=== PATIENT | female | born 1955 | race Caucasian/White ===

== ENCOUNTER → 2017-04-17 | Outpatient (CLI) | payer BC | END | disposition home or self-care (01) | LOC: RADECHMAIN 11:37 | PROVIDERS: ATTEND Family Medicine | DX: R00.2 Palpitations (principal) | CPT/HCPCS: 93270; 93271 ==

== ENCOUNTER → 2017-06-07 | Outpatient (CLI) | payer BC ==
--- NOTE | 2017-06-11 08:56 | MM ---
Reason for exam: screening (asymptomatic). Last mammogram was performed 1 year and 1 month ago. History: Patient is postmenopausal. Took hormonal contraceptives for 4 years. Physical Findings: A clinical breast exam by your physician is recommended on an annual basis and results should be correlated with mammographic findings. MG Screening Mammo w CAD Bilateral CC and MLO view(s) were taken. Prior study comparison: April 26, 2016, bilateral MG screening mammo w CAD. April 20, 2015, right breast MG 3d work up w/cad RT. There are scattered fibroglandular densities. No significant changes when compared with prior studies. ASSESSMENT: Negative, BI-RAD 1 RECOMMENDATION: Routine screening mammogram of both breasts in 1 year.
== END | disposition home or self-care (01) ==
LOC: RADMAMWWP 10:51
PROVIDERS: ATTEND Obstetrics & Gynecology
DX: Z12.31 Encounter for screening mammogram for malignant neoplasm of breast (principal)
CPT/HCPCS: 77067

== ENCOUNTER → 2017-11-04 | Outpatient (CLI) | payer BC ==
--- NOTE | 2017-11-04 15:33 | FL ---
EXAMINATION TYPE: FL barium enema DATE OF EXAM: 11/04/2017 COMPARISON: NONE HISTORY: Incomplete colonoscopy TECHNIQUE: A double contrast barium enema study is performed. A total of 4 minutes 48 seconds of flu oroscopic time was utilized during procedure. Preprocedure lump roller image is acquired. 10 overhead image s after procedure are acquired. 18 spot images are acquired and sent to PACS during procedure. FINDINGS: Gasoline Pump Installer view of the abdomen shows overall non-obstructive bowel gas pattern. There is gas pr ominence throughout the colon. There are pelvic phleboliths. Spina bifida defects L5 level is inciden tally seen. Patient had significant pain during filling likely due to residual colonic gas. Procedure was termina bee at level of hepatic flexure. I was then able to roll patient and get successful successful fillin g of the right colon to the cecum. There are few scattered diverticula throughout the colon most prom inent in the distal left and sigmoid colon. Appendix was not filled . The terminal ileum was not refluxed . There is a persistent short segment area of mucosal irregularity and narrowing in the mid sigmoid col on of the pelvis that appears more prominent uncertain images but appears to persist on multiple imag es, I do suspect a component of spasm but a early constricting lesion or focus at this level cannot b e excluded. IMPRESSION: Scattered diverticulosis. Suspicious short segment proximal to mid sigmoid colon persist s on several images. Neoplasm at this level cannot be excluded. Correlation with same-day incomplete colonoscopy advised. I would consider contrast-enhanced CT with rectal contrast to see if remains mojgan picious as there is component of spasm felt present also at this level based on colonoscopy correlati on.
== END | disposition home or self-care (01) ==
LOC: RADFLMAIN 14:08
PROVIDERS: ATTEND Surgery
DX: Z12.11 Encounter for screening for malignant neoplasm of colon (principal); K57.90 Diverticulosis of intestine, part unspecified, without perforation or abscess without bleeding
CPT/HCPCS: 74270

== ENCOUNTER → 2017-11-13 | Outpatient (CLI) | payer BC ==
--- NOTE | 2017-11-13 10:25 | CT ---
EXAMINATION TYPE: CT abdomen pelvis w con DATE OF EXAM: 11/13/2017 COMPARISON: Correlation barium enema 11/04/2017 HISTORY: 62-year-old female Failed colonoscopy, other intestinal obstructions. TECHNIQUE: Contiguous axial scanning of the abdomen and pelvis following administration of 100 ml Iso roland 300 IV contrast. Additional rectal contrast was administered. Delayed images through the kidneys and coronal/sagittal reconstructions performed. CT DLP: 1530 mGycm Automated exposure control for dose reduction was used. FINDINGS: Heart normal size without pericardial effusion. Small to moderate-sized hilar hernia. Lung bases brayan r without pleural effusion. A 7 mm nodular arterial phase blush in the mid liver, axial image 16 nonspecific, likely vascular rk nting or small flash filling hemangioma. Otherwise, no focal liver lesion seen. No biliary ductal dil atation. Portal venous system is patent. Adrenal glands, spleen, left kidney, and pancreas appear within normal limits. There is a 1.4 cm hypo dense lesion mid right kidney too small for accurate CT characterization, likely cortical cyst. No dilated small bowel, free fluid, or free air. Scattered mild colonic diverticulosis. Rectal tube is present with contrast opacifying the colon. The re remains a 5 cm long segment of abnormal wall thickening and narrowing along the mid sigmoid colon, refer to axial image 64 and coronal image 52. The remainder of the colon is distended with rectal co ntrast. Scattered mild to moderate stool is present. No mesenteric or retroperitoneal lymphadenopathy identified Bladder partially distended. Uterus is anteverted. Structure suspected to represent the right ovary i s seen, axial image 64. Left ovary not clearly delineated. Multiple pelvic phleboliths. No abnormal f luid collection in the pelvis no pelvic lymphadenopathy seen. Bones: Degenerative changes at the pubic symphysis, left SI joint and in the mid to lower lumbar spin e. There is left L5 pars defect with grade 1 anterolisthesis of L5-S1. No osseous destructive process . IMPRESSION: 1. PERSISTENT 5 CM LONG SEGMENT OF ABNORMAL NARROWING AND WALL THICKENING OF THE MID SIGMOID COLON. T HE REMAINDER OF THE CONTRAST IS DISTENDED WITH CONTRAST MATERIAL. FINDINGS COULD REPRESENT A POSTINFL AMMATORY STRICTURE OR NEOPLASM. 2. MILD SCATTERED COLONIC DIVERTICULOSIS. 3. SMALL TO MODERATE-SIZED HIATAL HERNIA.
== END | disposition home or self-care (01) ==
LOC: RADCTMAIN 07:53
PROVIDERS: ATTEND Surgery
DX: K56.609 Unspecified intestinal obstruction, unspecified as to partial versus complete obstruction (principal); K57.30 Diverticulosis of large intestine without perforation or abscess without bleeding; K44.9 Diaphragmatic hernia without obstruction or gangrene
CPT/HCPCS: 74177; Q9967

== ENCOUNTER → 2017-12-13 | Outpatient (CLI) | payer BC ==
[2017-12-13 12:33] LABS: HCT 42.4 % (34.0-46.0); HGB 14.2 gm/dL (11.4-16.0); MCH 30.2 pg (25.0-35.0); MCHC 33.5 g/dL (31.0-37.0); Mean Platelet Volume 6.1; Platelet Count 363 k/uL (150-450); RBC 4.71 m/uL (3.80-5.40); RDW 12.7 % (11.5-15.5); WBC 5.3 k/uL (3.8-10.6)
[2017-12-13 12:51] LABS: Anion Gap 8 mmol/L; Blood Urea Nitrogen 14 mg/dL (7-17); Calcium 9.2 mg/dL (8.4-10.2); Carbon Dioxide 30 mmol/L (22-30); Chloride 95 mmol/L (98-107); Glucose 86 mg/dL (74-99); Potassium 3.9 mmol/L (3.5-5.1); Sodium 133 mmol/L (137-145)
== END | disposition home or self-care (01) ==
LOC: LABPAT 11:22
PROVIDERS: ATTEND Anesthesiology
DX: Z01.818 Encounter for other preprocedural examination (principal); Z01.812 Encounter for preprocedural laboratory examination
CPT/HCPCS: 80048; 85027; 93005

== ENCOUNTER 2017-12-18 11:17 | Inpatient (IN) | payer BC ==
[2017-12-13 09:00] VITALS: BMI 33.7
[~2017-12-18 11:17] MED LIST: HEPARIN SODIUM,PORCINE 5,000 UNIT/ML 1 ML VIAL SQ ONE; HYDROmorphone 0.5 MG/0.5 ML SYRINGE IVP PRN; ONDANSETRON 4 MG/2 ML VIAL IVP ONE; SCOPOLAMINE 1.5MG/72HR PATCH TRANSDERM ONE; ceFAZolin IN SWFI 2 GM/20 ML SYRINGE IVP ONE; fentaNYL (PF) 50 MCG/ML 2 ML AMP IV PRN; metroNIDAZOLE-NS PMX 500 MG in SALINE 1 100ML.BAG IVPB ONE
[2017-12-18] MEDS: LACTATED RINGERS 1,000 ML IV SCH (12:18)
[2017-12-18] MEDS ORDERED: LIDOCAINE 1% 20 ML VIAL (10MG/ML) FOR IV START INTRADERMA ONE ×2 (12:18→12:19)
[2017-12-18] MEDS ORDERED: MIDAZOLAM 2 MG/2 ML VIAL IV ONE (12:36)
[2017-12-18] MEDS ORDERED: fentaNYL (PF) 50 MCG/ML 2 ML AMP IV ONE (12:36)
[2017-12-18] MEDS ORDERED: DEXAMETHASONE SOD PHOSPHATE 10 MG/ML 1 ML VIAL IV ONE (13:15)
[2017-12-18] MEDS ORDERED: ePHEDrine SULFATE/0.9% NACL/PF 50 MG/5 ML SYRINGE IV ONE (13:27)
[2017-12-18] MEDS ORDERED: NEOSTIGMINE 1 MG/ML 10 ML VIAL ONE (13:27)
[2017-12-18] MEDS ORDERED: MIDAZOLAM 2 MG/2 ML VIAL ONE (13:27)
[2017-12-18] MEDS ORDERED: KETOROLAC 30 MG/ML 1 ML VIAL ONE ×2 (13:27→23:45)
[2017-12-18] MEDS ORDERED: PROPOFOL 10 MG/ML 20 ML VIAL IV ONE (13:27)
[2017-12-18] MEDS ORDERED: fentaNYL (PF) 50 MCG/ML 2 ML AMP ONE (13:27)
[2017-12-18] MEDS ORDERED: LIDOCAINE 1% INJ 10MG/ML (20 ML MDV) ONE (13:27)
[2017-12-18] MEDS ORDERED: GLYCOPYRROLATE 0.2 MG/ML 2 ML VIAL ONE (13:27)
[2017-12-18] MEDS ORDERED: SUCCINYLCHOLINE CHLORIDE 100 MG/5 ML SYR IV ONE (13:27)
[2017-12-18] MEDS ORDERED: ROCURONIUM BROMIDE 10 MG/ML 10 ML VIAL IV ONE (13:27)
[2017-12-18] MEDS ORDERED: BUPIVACAIN-EPI 0.5%-1:200,000 30 ML VIAL SQ ONE (14:09)
[2017-12-18] MEDS ORDERED: LACTATED RINGERS 1,000 ML IV ONE (15:21)
[2017-12-18] MEDS ORDERED: NALOXONE 0.4 MG/ML 1 ML VIAL IV PRN ×2 (15:57→17:36)
[2017-12-18] MEDS ORDERED: NALBUPHINE 10 MG/ML VIAL (10ML MDV) IV PRN (15:57)
[2017-12-18] MEDS ORDERED: ROPIVACAINE 300 MG, HYDROMORPHONE (PF) 5 MG in SODIUM CHLORIDE 0.9% 190 ML EPIDURAL PRN (15:57)
[2017-12-18] MEDS ORDERED: diphenhydrAMINE 50 MG/ML 1 ML VIAL IVP PRN (15:57)
[2017-12-18] MEDS ORDERED: ONDANSETRON 4 MG/2 ML VIAL IVP PRN (17:36)
[2017-12-18] MEDS ORDERED: HYDROmorphone 1 MG/ML 1 ML SYRINGE IVP PRN (17:36)
--- NOTE | 2017-12-18 17:51 | P.OP ---
Date of Procedure: 12/18/17 Preoperative Diagnosis: Sigmoid colon Stricture Postoperative Diagnosis: Sigmoid colon stricture, right direct inguinal hernia Procedure(s) Performed: Robotic sigmoid colon resection Anesthesia: MIKE Surgeon: Marianne Aguayo Estimated Blood Loss (ml): 250 Pathology: other (Sigmoid colon) Condition: stable Disposition: PACU Indications for Procedure: Patient had a complete colonoscopy. A follow-up CT and barium enema showed a persistent sigmoid colon stricture and she presented for surgery Operative Findings: The sigmoid colon was densely adherent to the left tube and ovary along with the pelvic sidewall. There appeared to be a area of chronic diverticular change. She also had a small right inguinal hernia noted. Otherwise the liver , diaphragm, large and small bowel were normal where they were seen Description of Procedure: The patient was taken the operative suite where she is prepped and draped in the usual sterile manner under general endotracheal anesthetic. A small stab incision was made and a varies needle was placed into the abdominal cavity. Pneumoperitoneum was established with CO2 gas. Sites are chosen for trochars needs are placed through small skin incisions. The abdominal pelvic contents were examined with findings as described above. The robot is then docked. The colon was rather redundant. The descending and sigmoid Owen were mobilized along the white line of Toldt. The sigmoid colon was reflected medially off the ureter. The sigmoid was densely adherent to the left tube and ovary and the sigmoid folded over on itself. It was tediously mobilized. Once that was done sites were chosen proximally and distally for resection. Because of how firm and difficult it was to see down in the pelvis because of the disease, the mesentery was opened on the proximal segment and a EBER stapler was placed and fired. The mesentery was then taken down with a vessel seal device. The sigmoidal vessels were skeletonized and occluded with wick clips then divided with a vessel sealer. Once the specimen was mobilized adequately to the distal section, another stapler was placed and fired. A small incision was then made in the left abdomen through one of the trocar sites. The specimen was brought up through that. The occipital colon was also brought up through there. A pursestring suture of 3-0 Vicryl was placed. The staple line was removed. A 33 EEA anvil was placed in the proximal segment pursestring was tied down. That segment was dropped back into the abdominal cavity. The peritoneum and posterior fascia were closed with 0 Vicryl. An engineer third assistant then placed the EEA per rectum. Once the EEA was in appropriate position the attachment prong was advanced the orange portion was seen. Anvil was then attached to the stapler until clipped. The stapler was then tightened until the indicator was in the mid green portion. It was held for a minute. It was fired and then held for an additional minute. It was derotated and removed. The sigmoid colon was occluded proximally. Sterile saline was placed into the pelvis. Sigmoidoscope was inserted and the distal colon was repeatedly insufflated. The colon could be seen to distend appropriately. There was no air leak noted. Excess irrigant was then suctioned out. There was slight oozing noted from where the diseased colon was dissected free so a 19 channel drain was placed anterior to the anastomosis and posterior to the uterus. The pneumoperitoneum was then released. The trochars were removed. The fascia was closed with 0 Vicryl. The skin incisions were closed with seamus. The drain was sutured in place. Sterile dressings were applied. She tolerated the procedure without difficulty and was taken recovery room in satisfactory condition. According to or personnel, WERE correct.
[2017-12-18] MEDS: D5-0.45% NACL WITH KCL 20MEQ/L 1,000 ML IV SCH (19:39)
[2017-12-18] MEDS: KETOROLAC 30 MG/ML 1 ML VIAL IVP SCH (19:39)
[2017-12-18] MEDS: METOCLOPRAMIDE 5 MG/ML 2 ML VIAL IVP SCH (19:40)
[2017-12-18] MEDS ORDERED: METOCLOPRAMIDE 5 MG/ML 2 ML VIAL ONE (23:45)
[2017-12-19] MEDS ORDERED: HEPARIN SODIUM,PORCINE 5,000 UNIT/ML 1 ML VIAL ONE
[2017-12-19] MEDS: KETOROLAC 30 MG/ML 1 ML VIAL IVP SCH ×4 (05:24→23:36)
[2017-12-19] MEDS: HEPARIN SODIUM,PORCINE 5,000 UNIT/ML 1 ML VIAL SQ SCH ×4 (05:24→23:36)
[2017-12-19] MEDS: METOCLOPRAMIDE 5 MG/ML 2 ML VIAL IVP SCH ×4 (05:24→23:36)
[2017-12-19 07:14] LABS: Basophils % (A) 0 %; Eosinophils % (A) 0 %; HCT 34.9 % (34.0-46.0); HGB 11.5 gm/dL (11.4-16.0); Lymphocytes # (A) 1.1 k/uL (1.0-4.8); Lymphocytes % (A) 15 %; MCH 30.1 pg (25.0-35.0); MCV 91.2 fL (80.0-100.0); Mean Platelet Volume 6.3; Monocytes # (A) 0.5 k/uL (0-1.0); Monocytes % (A) 6 %; Neutrophils # (A) 6.1 k/uL (1.3-7.7); Neutrophils % (A) 77 %; Platelet Count 261 k/uL (150-450); RBC 3.83 m/uL (3.80-5.40); RDW 12.8 % (11.5-15.5); WBC 7.8 k/uL (3.8-10.6)
--- NOTE | 2017-12-19 07:25 | P.PN ---
Progress Note - Text Postop day 1 from exploratory laparotomy, epidural catheter inserted for postop pain control. Epidural solution: Ropivacaine 0.12%with Dilaudid 20 mcgs/ml running at 4mL an hour. Patient pain is well controlled with visual analog score of 0-1/10. No nausea vomiting, itching, weakness or numbness in the legs or headache reported by the patient. Plan: To continue the epidural infusion at the current rate.
[2017-12-19 07:46] LABS: Anion Gap 6 mmol/L; Blood Urea Nitrogen 10 mg/dL (7-17); Calcium 8.1 mg/dL (8.4-10.2); Carbon Dioxide 30 mmol/L (22-30); Chloride 97 mmol/L (98-107); Glucose 98 mg/dL (74-99); Potassium 3.4 mmol/L (3.5-5.1); Sodium 133 mmol/L (137-145)
[2017-12-19] MEDS ORDERED: PANTOPRAZOLE 40 MG/10 ML VIAL IV SCH (09:00)
--- NOTE | 2017-12-19 10:18 | P.PN ---
Subjective Progress Note Date: 12/19/17 Principal diagnosis: The patient's postop from a robotic sigmoid resection for a stricture. Patient's doing well. No chest pain or shortness of breath. She was able to take clear liquids. No vomiting. Objective - Vital Signs Vital signs: Vital Signs Temp 97.8 F 12/18/17 19:15 Pulse 63 12/18/17 21:00 Resp 16 12/18/17 19:49 BP 100/63 12/18/17 21:00 Pulse Ox 98 12/18/17 21:00 Intake & Output 12/18/17 12/19/17 12/19/17 18:59 06:59 18:59 Intake Total 2711 1960 240 Output Total 600 525 Balance 2111 1435 240 Weight 92.079 kg Intake: IV 2711 Intake, IV Titration 760 Amount D5-0.45% NaCl with KCl 760 20Meq/l 1,000 ml @ 80 mls /hr IV .[id number] ALAN Rx#: [id number] Oral 1200 240 Output: Drainage 25 Anterior Abdomen 25 Urine 500 500 Estimated Blood Loss 100 Other: Voiding Method Indwelling Catheter - Constitutional General appearance: Present: cooperative, no acute distress - Respiratory Respiratory: bilateral: CTA - Cardiovascular Rhythm: regular - Gastrointestinal General gastrointestinal: Present: normal bowel sounds, soft Localized gastrointestinal: surgical scar: diffuse (Dressings are intact clean and dry. KEYANA is a scant amount of serosanguineous fluid) - Labs CBC & Chem 7: 12/19/17 06:27 12/19/17 06:27 Labs: Abnormal Lab Results - Last 24 Hours (Table) 12/19/17 Range/Units 06:27 Sodium 133 L (137-145) mmol/L Potassium 3.4 L (3.5-5.1) mmol/L Chloride 97 L (98-107) mmol/L Calcium 8.1 L (8.4-10.2) mg/dL Assessment and Plan (1) Stricture of sigmoid colon Current Visit: Yes Status: Acute Code(s): K56.699 - OTHER INTESTNL OBST UNSP TO PARTIAL VERSUS COMPLETE OBST SNOMED Code(s): 2282044 Plan: Patient's doing well. We will discontinue the epidural catheter and [place]xton. Increase her activity. Increase diet as tolerated. I asked nursing to make sure her incentive spirometry is delivered to bedside and that she start using it. Progressing well. Hopefully ready for discharge in the next day or 2.
[2017-12-19] MEDS: LORATADINE 10 MG TAB PO SCH (12:57)
[2017-12-19] MEDS: D5-0.45% NACL WITH KCL 20MEQ/L 1,000 ML IV SCH ×2 (13:01→18:09)
[2017-12-19] MEDS: HYDROCHLOROTHIAZIDE 25 MG TAB PO SCH (13:02)
[2017-12-19] MEDS ORDERED: HYDROmorphone 1 MG/ML 1 ML SYRINGE IVP PRN (14:05)
[2017-12-19] MEDS ORDERED: ONDANSETRON 4 MG/2 ML VIAL IVP PRN (14:06)
[2017-12-19] MEDS ORDERED: NALOXONE 0.4 MG/ML 1 ML VIAL IV PRN (14:07)
[2017-12-19] MEDS: LACTATED RINGERS 1,000 ML IV SCH (18:11)
[2017-12-19] MEDS: HYDROcodone/APAP 5-325MG 1 EACH TAB PO PRN ×2 (19:41→23:35)
[2017-12-20] MEDS: HYDROcodone/APAP 5-325MG 1 EACH TAB PO PRN ×2 (04:50→13:38)
[2017-12-20] MEDS: KETOROLAC 30 MG/ML 1 ML VIAL IVP SCH (06:15)
[2017-12-20] MEDS: METOCLOPRAMIDE 5 MG/ML 2 ML VIAL IVP SCH ×2 (06:16→09:04)
[2017-12-20] MEDS: D5-0.45% NACL WITH KCL 20MEQ/L 1,000 ML IV SCH (09:00)
[2017-12-20] MEDS: LACTATED RINGERS 1,000 ML IV SCH (09:00)
[2017-12-20] MEDS ORDERED: PANTOPRAZOLE 40 MG/10 ML VIAL IVP SCH (09:00)
[2017-12-20] MEDS: HYDROCHLOROTHIAZIDE 25 MG TAB PO SCH (09:04)
[2017-12-20] MEDS: HEPARIN SODIUM,PORCINE 5,000 UNIT/ML 1 ML VIAL SQ SCH (09:04)
[2017-12-20] MEDS: LORATADINE 10 MG TAB PO SCH (09:04)
--- NOTE | 2017-12-20 10:29 | P.PN ---
Subjective Progress Note Date: 12/20/17 Principal diagnosis: The patient's postop from a robotic sigmoid resection for a stricture. The patient is feeling much better today. She thinks some of her upset stomach and malaise yesterday was from the epidural. Once the epidural was continued she started feeling much better. Tolerating a diet. Passing some flatus. No nausea or vomiting. Ambulating better today Objective - Vital Signs Vital signs: Vital Signs Temp 98.2 F 12/20/17 07:00 Pulse 72 12/20/17 07:00 Resp 14 12/20/17 07:00 BP 148/83 12/20/17 07:00 Pulse Ox 95 12/20/17 07:00 Intake & Output 12/19/17 12/20/17 12/20/17 18:59 06:59 18:59 Intake Total 240 490 Output Total 520 10 Balance -280 480 Intake: Intake, IV Titration 250 Amount D5-0.45% NaCl with KCl 250 20Meq/l 1,000 ml @ 80 mls /hr IV .[id number] [facility] Rx#: [id number] Oral 240 240 Output: Drainage 20 10 Anterior Abdomen 20 10 Urine 500 Uretheral ([place]) 100 Other: Voiding Method Indwelling Catheter # Voids 1 - Constitutional General appearance: Present: cooperative, no acute distress - Respiratory Respiratory: bilateral: CTA - Gastrointestinal General gastrointestinal: Present: distended (Softly distended), normal bowel sounds Localized gastrointestinal: surgical scar: diffuse (Incisions are intact clean and dry. KEYANA has a scant amount of serosanguineous fluid) - Labs CBC & Chem 7: 12/19/17 06:27 12/19/17 06:27 Assessment and Plan (1) Stricture of sigmoid colon Current Visit: Yes Status: Acute Code(s): K56.699 - OTHER INTESTNL OBST UNSP TO PARTIAL VERSUS COMPLETE OBST SNOMED Code(s): 4966959 Plan: Patient's clinically improving today. We'll discontinue the IV and KEYANA drain. Monitor her oral intake. Likely she will be ready for discharge either later today or tomorrow. We discussed follow-up appointment, diet and activity after discharge.
[2017-12-20 15:39] VITALS: BP 142/80; PULSE 74; RESP 16; TEMP 98
[2017-12-21] MEDS ORDERED: PANTOPRAZOLE 40 MG TABLET PO SCH (09:00)
--- NOTE | 2017-12-23 15:38 | CDI ---
Last Revision, April 2017 Documentation Clarification Form Date: 12/23/17 From: Simona Zaidi Phone: If you have question, contact Sofia Styles Glaze Mixer at M-F 8:30 am to 6pm Admit Date: 12/18/2017 11:17:00 AM Patient Name: Fadumo Nielsen Visit Number: [id number] Discharge Date: 12/20/17 ATTENTION: The Clinical Documentation Specialists (CDI) and [facility] Coding Staff appreciate your assistance in clarifying documentation. Please respond to the clarification below the line at the bottom and electronically sign. The CDI & [facility] Coding staff will review the response and follow-up if needed. Please note: Queries are made part of the Legal Health Record. If you have any questions, please contact the author of this message via ITS. Dr. Marianne Aguayo According to the Procedure Note the sigmoid was densely adherent to the left tube and ovary and the sigmoid folded over on itself. There was noted sigmoid stricture. Further clarification regarding this stricture is needed for proper reporting purposes. Please clarify if the obstruction was: Complete Incomplete Partial Other/unspecified Thank you for your time. partial MTDD
--- NOTE | 2017-12-24 17:08 | P.DS ---
Providers Date of admission: 12/18/17 11:17 Expected date of discharge: 12/20/17 Attending physician: Marianne Aguayo Primary care physician: Marianne Tang - Discharge Diagnosis(es) (1) Stricture of sigmoid colon Status: Acute Hospital Course: The patient presented for colon resection due to sigmoid colon stricture. She underwent a robotic sigmoid resection. She is given prophylactic antibiotics and DVT prophylaxis. She was quickly able to be increased on her diet and activity. I postop day 2 she was tolerating a diet with minimal pain and felt to be stable for discharge Procedures: Robotic sigmoid resection Patient Condition at Discharge: Good Plan - Discharge Summary Discharge Rx Participant: Yes New Discharge Prescriptions: New HYDROcodone/APAP 5-325MG [[place] 5-325] 1 - 2 tab PO Q4H PRN #15 tab PRN Reason: Pain No Action Ibuprofen [Advil] 200 mg PO Q8HR PRN PRN Reason: Pain Cetirizine HCl [Zyrtec] 10 mg PO DAILY Hydrochlorothiazide 25 mg PO QAM Discharge Medication List Cetirizine HCl [Zyrtec] 10 mg PO DAILY 12/13/17 [History] Hydrochlorothiazide 25 mg PO QAM 12/13/17 [History] Ibuprofen [Advil] 200 mg PO Q8HR PRN 12/13/17 [History] HYDROcodone/APAP 5-325MG [[place] 5-325] 1 - 2 tab PO Q4H PRN #15 tab 12/20/17 [Rx ] Patient Instructions/Handouts: Low Fiber Diet (DC), Bowel Resection (DC) Activity/Diet/Wound Care/Special Instructions: You may shower. No tub baths or swimming for 1 week. Follow a low fiber diet for 2 weeks. Then you can resume diet as tolerated. Expect softer more frequent bowel movements for 1-2 weeks. No lifting greater than 10 pounds for [address] while taking pain medications. You may take Motrin or Tylenol instead of the pain pills. Call if you develop fever, chills, nausea, vomiting, wound concerns. Discharge Disposition: HOME SELF-CARE
== END 2017-12-20 15:54 | disposition home or self-care (01) | DRG 331 ==
LOC: 2ORMAIN 11:17 → 3SUR 17:36
PROVIDERS: ADMIT Surgery; ATTEND Surgery
PROC: 8E0W4CZ Robotic Assisted Procedure of Trunk Region, Percutaneous Endoscopic Approach (ICD-10-PCS; 2017-12-18)
PROC: 0DTN0ZZ Resection of Sigmoid Colon, Open Approach (ICD-10-PCS; principal; 2017-12-18 13:00)
DX: K56.51 Intestinal adhesions [bands], with partial obstruction (principal); N73.6 Female pelvic peritoneal adhesions (postinfective); K40.90 Unilateral inguinal hernia, without obstruction or gangrene, not specified as recurrent; K57.30 Diverticulosis of large intestine without perforation or abscess without bleeding; I10 Essential (primary) hypertension; Z82.49 Family history of ischemic heart disease and other diseases of the circulatory system; Z79.899 Other long term (current) drug therapy; Z87.891 Personal history of nicotine dependence
CPT/HCPCS: 80048; 85025; 86850; 86900; 86901; 88307

== ENCOUNTER → 2018-06-12 | Outpatient (CLI) | payer BC ==
--- NOTE | 2018-06-12 14:04 | BD ---
EXAMINATION TYPE: Axial Bone Density DATE OF EXAM: 06/12/2018 COMPARISON: 06.05.2012 CLINICAL HISTORY: 62 YR OLD FEMALE.....ICD-10 CODE: Z13.820 OSTEOPOROSIS SCREENING Height: 64.3 Weight: 212 FRAX RISK QUESTIONS: Family History (Parent hip fracture): YES RISK FACTORS HISTORY OF: Family History of Osteoporosis: YES, HER MOTHER Active: YES Postmenopausal woman: 55 YRS OLD MEDICATIONS: Additional Medications: BP MEDS, Additional History: HYPERTENSION EXAM MEASUREMENTS: Bone mineral densitometry was performed using the [employer] System. Bone mineral density as measured about the Lumbar spine is: ----- L1-L4(G/cm2): 1.316 T Score Values are as follows: ----- L1: 0.0 ----- L2: 0.1 ----- L3: 1.7 ----- L4: 2.3 ----- L1-L4: 1.1 Bone mineral density has: Increased 6.9% since study of: 06.05.2012 Bone mineral density about the R hip (g/cm2): 1.026 Bone mineral density about the L hip (g/cm2): 1.059 T Score values are as follows: -----R Neck: 0.0 -----L Neck: 0.2 -----R Total: 0.1 -----L Total: 0.4 Bone mineral density has: Decreased -11.0% since study of: 06.05.2012 FRAX%s: THERE IS A 11.7% CHANCE FOR A MAJOR OSTEOPOROTIC FX AND A 0.1% FOR HIP.....PROBABILITY OF FX IN 10 YRS TIME IMPRESSION: Normal (Values between +1 and -1 indicate normal bone mass). Consider repeating this study in 5 year s or sooner if there is some new clinical indication. NOTE: T-SCORE=SD OF THE YOUNG ADULT MEAN.
--- NOTE | 2018-06-14 13:25 | MM ---
Reason for exam: screening (asymptomatic). Last mammogram was performed 1 year ago. History: Patient is postmenopausal. Took hormonal contraceptives for 4 years. MG Screening Mammo w CAD Bilateral CC and MLO view(s) were taken. Prior study comparison: June 07, 2017, bilateral MG screening mammo w CAD. April 26, 2016, bilateral MG screening mammo w CAD. There are scattered fibroglandular densities. There are stable benign-appearing diffuse round bilateral breast calcifications. No significant changes when compared with prior studies. ASSESSMENT: Benign, BI-RAD 2 RECOMMENDATION: Routine screening mammogram of both breasts in 1 year.
== END | disposition home or self-care (01) ==
LOC: RADMAMWWP 11:47
PROVIDERS: ATTEND Obstetrics & Gynecology
DX: Z12.31 Encounter for screening mammogram for malignant neoplasm of breast (principal); Z13.820 Encounter for screening for osteoporosis
CPT/HCPCS: 77067; 77080

== ENCOUNTER → 2019-06-24 | Outpatient (CLI) | payer BC ==
--- NOTE | 2019-06-25 11:30 | MM ---
Reason for exam: screening (asymptomatic). Last mammogram was performed 1 year ago. History: Patient is postmenopausal. Took hormonal contraceptives for 4 years. Physical Findings: A clinical breast exam by your physician is recommended on an annual basis and results should be correlated with mammographic findings. MG 3D Screening Mammo W/Cad Bilateral CC and MLO view(s) were taken. Prior study comparison: June 12, 2018, bilateral MG screening mammo w CAD. June 07, 2017, bilateral MG screening mammo w CAD. There are scattered fibroglandular densities. There are benign appearing round calcifications bilaterally. There is no discrete abnormality. ASSESSMENT: Benign, BI-RAD 2 RECOMMENDATION: Routine screening mammogram of both breasts in 1 year.
== END | disposition home or self-care (01) ==
LOC: RADMAMWWP 15:14
PROVIDERS: ATTEND Obstetrics & Gynecology
DX: Z12.31 Encounter for screening mammogram for malignant neoplasm of breast (principal)
CPT/HCPCS: 77063; 77067

== ENCOUNTER 2019-12-13 16:27 | Emergency (ER) | payer BC ==
[2019-12-13 16:40] VITALS: RESP 18; TEMP 98.8
--- NOTE | 2019-12-13 17:00 | ED ---
General Adult HPI - General Chief complaint: Shortness of Breath Stated complaint: SOB/COVID positive Time Seen by Provider: 12/13/19 16:43 Source: patient Mode of arrival: ambulatory Limitations: no limitations - History of Present Illness Initial comments: Patient is a 64-year-old female presenting to emergency Department with chief complaint of code. Patient states she tested for covid 3 days ago. Patient reports she has a productive cough with occasional coughing fits. Patient reports she is concerned about the coughing fits and is not really short of breath. Patient denies any chest pain nausea vomiting diarrhea. However, she does report loss of taste or smell. She does report having chills and fever home. Stay she has been taking ibuprofen to alleviate the fever. States her has also tested positive. States she has been otherwise attempted to self isolate home. She denies any wheezing. States she is a former smoker and she quit 16 years ago. No history of asthma COPD. - Related Data Home Medications Medication Instructions Recorded Confirmed Cetirizine HCl [Zyrtec] 10 mg PO DAILY 12/13/17 12/18/17 Hydrochlorothiazide 25 mg PO QAM 12/13/17 12/18/17 Ibuprofen [Advil] 200 mg PO Q8HR PRN 12/13/17 12/18/17 Previous Rx's Medication Instructions Recorded HYDROcodone/APAP 5-325MG [[place] 1 - 2 tab PO Q4H PRN #15 tab 12/20/17 5-325] Allergies Allergy/AdvReac Type Severity Reaction Status Date / Time No Known Allergies Allergy Verified 12/13/19 16:56 Review of Systems ROS Statement: Those systems with pertinent positive or pertinent negative responses have been documented in the HPI. ROS Other: All systems not noted in ROS Statement are negative. 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 Wears orthotics in shoes for "flat feet", states "ankle gets locked up" at times History of Any Multi-Drug Resistant Organisms: None Reported Additional Past Surgical History / Comment(s): D&C, COLONOSCOPY Past Anesthesia/Blood Transfusion Reactions: Motion Sickness Past Psychological History: Anxiety Smoking Status: Former smoker Past Alcohol Use History: Occasional Past Drug Use History: None Reported - Past Family History Brother(s) Family Medical History: Cancer Additional Family Medical History / Comment(s): LUNG, BRAIN Father Additional Family Medical History / Comment(s): Flat feet Mother Family Medical History: Vascular Disorder Additional Family Medical History / Comment(s): Varicose veins, Diverticulitis General Exam Limitations: no limitations General appearance: alert, in no apparent distress Head exam: Present: atraumatic, normocephalic, normal inspection Eye exam: Present: normal appearance, PERRL, EOMI Pupils: Present: normal accommodation ENT exam: Present: normal exam, normal oropharynx, mucous membranes moist, TM's normal bilaterally, normal external ear exam Neck exam: Present: normal inspection, full ROM. Absent: tenderness Respiratory exam: Present: normal lung sounds bilaterally. Absent: respiratory distress, wheezes, rales, rhonchi, stridor, chest wall tenderness, accessory muscle use, decreased breath sounds, prolonged expiratory Cardiovascular Exam: Present: regular rate, normal rhythm, normal heart sounds Extremities exam: Present: normal inspection, full ROM. Absent: tenderness Back exam: Present: normal inspection, full ROM. Absent: tenderness, CVA tenderness (R), CVA tenderness (L) Neurological exam: Present: alert, oriented X3, normal gait Psychiatric exam: Present: normal affect, normal mood Skin exam: Present: warm, dry, intact, normal color Course Vital Signs 12/13/19 12/13/19 12/13/19 16:37 16:40 16:57 Temperature 98.8 F Pulse Rate 77 Respiratory 18 18 18 Rate Blood Pressure 150/96 O2 Sat by Pulse 97 Oximetry 12/13/19 12/13/19 12/13/19 17:40 18:40 19:14 Temperature 98.8 F Pulse Rate 69 69 Respiratory 18 18 18 Rate Blood Pressure 131/85 131/85 O2 Sat by Pulse 96 96 Oximetry Medical Decision Making - Medical Decision Making Patient is 64-year-old female presenting to the emergency department with a chief complaint of covid-19. On exam patient is not in any respiratory distress. Lungs are clear bilaterally on auscultation. Chest x-ray shows no focal consolidation. Patient is saturating well on room air. Patient doesn't have any significant shortness of breath. Advised the patient self isolated and take Tylenol if she develops a fever. Return parameters were thoroughly discuss ed the patient is understanding and agreeable. Case discussed physician. Disposition Clinical Impression: Cough, COVID-19 Disposition: HOME SELF-CARE Condition: Good Instructions (If sedation given, give patient instructions): Chronic Cough (ED) Additional Instructions: Self isolate. Take Tylenol for the fever. Return to emergency department if symptoms worsen. Is patient prescribed a controlled substance at d/c from ED?: No Referrals: Marianne Tang MD [Primary Care Provider] - 1-2 days Time of Disposition: 18:39
--- NOTE | 2019-12-13 18:38 | XR ---
EXAMINATION TYPE: XR chest 1V portable DATE OF EXAM: 12/13/2019 COMPARISON: NONE HISTORY: Increased shortness of breath and cough. COVID-19 positive. TECHNIQUE: Single frontal view of the chest is obtained. FINDINGS: There is no focal air space opacity, pleural effusion, or pneumothorax seen. The cardiac silhouette size is within normal limits. The osseous structures are intact. IMPRESSION: No focal consolidation.
[2019-12-13 19:14] VITALS: BP 131/85; PULSE 69
== END 2019-12-13 19:16 | disposition home or self-care (01) ==
LOC: EC 16:27
DX: U07.1 COVID-19 (principal); I10 Essential (primary) hypertension; M19.90 Unspecified osteoarthritis, unspecified site; Z79.899 Other long term (current) drug therapy; Z87.891 Personal history of nicotine dependence
CPT/HCPCS: 71045; 99284

== ENCOUNTER → 2020-07-04 | Outpatient (CLI) | payer BC ==
--- NOTE | 2020-07-05 13:17 | MM ---
Reason for exam: screening (asymptomatic). Last mammogram was performed 1 year ago. History: Patient is postmenopausal. Took hormonal contraceptives for 4 years. Physical Findings: A clinical breast exam by your physician is recommended on an annual basis and results should be correlated with mammographic findings. MG 3D Screening Mammo W/Cad Bilateral CC and MLO view(s) were taken. Prior study comparison: June 24, 2019, bilateral MG 3d screening mammo w/cad. June 12, 2018, bilateral MG screening mammo w CAD. There are scattered fibroglandular densities. No significant changes when compared with prior studies. ASSESSMENT: Benign, BI-RAD 2 RECOMMENDATION: Routine screening mammogram of both breasts in 1 year.
== END | disposition home or self-care (01) ==
LOC: RADMAMWWP 09:07
PROVIDERS: ATTEND Family Medicine
DX: Z12.31 Encounter for screening mammogram for malignant neoplasm of breast (principal)
CPT/HCPCS: 77063; 77067

== ENCOUNTER → 2021-07-05 | Outpatient (CLI) | payer BC ==
--- NOTE | 2021-07-07 11:43 | MM ---
Reason for exam: screening (asymptomatic). Last mammogram was performed 1 year ago. History: Patient is postmenopausal. Took hormonal contraceptives for 4 years. Physical Findings: A clinical breast exam by your physician is recommended on an annual basis and results should be correlated with mammographic findings. MG 3D Screening Mammo W/Cad Bilateral CC and MLO view(s) were taken. Prior study comparison: July 04, 2020, bilateral MG 3d screening mammo w/cad. June 24, 2019, bilateral MG 3d screening mammo w/cad. There are scattered fibroglandular densities. No significant changes when compared with prior studies. ASSESSMENT: Negative, BI-RAD 1 RECOMMENDATION: Routine screening mammogram of both breasts in 1 year.
== END | disposition home or self-care (01) ==
LOC: RADMAMWWP 16:09
PROVIDERS: ATTEND Family Medicine
DX: Z12.31 Encounter for screening mammogram for malignant neoplasm of breast (principal); Z78.0 Asymptomatic menopausal state
CPT/HCPCS: 77063; 77067

== ENCOUNTER → 2023-07-08 | Outpatient (CLI) | payer MEDICARE ==
--- NOTE | 2023-07-08 18:20 | BD ---
EXAMINATION TYPE: Axial Bone Density DATE OF EXAM: 07/08/2023 CLINICAL HISTORY: 67 years old Female. ICD-10 CODE: Z78.0 MENOPAUSAL STATE Height: 65 Weight: 234.2 FRAX RISK QUESTIONS: Alcohol (3 or more units per day): no Family History (Parent hip fracture): no Glucocorticoids (More than 3mos): no (Ex: prednisone, prednisolone, methylprednisolone, dexamethasone, and hydrocortisone). History of Fracture in Adulthood: no Secondary Osteoporosis: 1. Type 1 Diabetes: no 2. Hyperthyroidism: no 3. Menopause before 45: no 4. Malnutrition: no 5. Chronic liver disease: no Rheumatoid Arthritis: no Current Tobacco Use: no RISK FACTORS HISTORY OF: Surgery to Spine/Hip(right/left)/Wrist (right/left): no EXAM MEASUREMENTS: Bone mineral densitometry was performed using the [employer]. Bone mineral density as measured about the Lumbar spine is: ----- L1-L4(G/cm2): 1.215 T Score Values are as follows: ----- L1: 0.0 ----- L2: -0.6 ----- L3: 0.3 ----- L4: 1.0 ----- L1-L4: 0.3 Z Score Values are as follows: ----- L1: 0.5 ----- L2: -0.2 ----- L3: 0.8 ----- L4: 1.4 ----- L1-L4: 0.7 Bone mineral density has: decreased -7.7 % since study of: 06.12.2018 Bone mineral density about the R hip (g/cm2): 1.011 Bone mineral density about the L hip (g/cm2): 1.007 T Score values are as follows: -----R Neck: -0.2 -----L Neck: -0.2 -----R Total: 0.0 -----L Total: 0.0 Z Score values are as follows: -----R Neck: 0.5 -----L Neck: 0.6 -----R Total: 0.4 -----L Total: 0.4 Bone mineral density has: decreased -3.3 % since study of: 06.12.2018 FRAX%s: The graph provided illustrates a 6.2% chance for a major osteoporotic fx and a 0.2% chance fo r the hips probability for fx in 10 years time. IMPRESSION: Normal (Values between +1 and -1 indicate normal bone mass). Consider repeating this study in 5 year s or sooner if there is some new clinical indication. NOTE: T-SCORE=SD OF THE YOUNG ADULT MEAN.
--- NOTE | 2023-07-09 08:32 | MM ---
Reason for Exam: Screening (asymptomatic). Last screening mammogram was performed 12 month(s) ago. Patient History: Menarche at age 14. First Full-Term at age 20. Postmenopausal. Patient used Hormonal Contraceptives for 4 years. Risk Values: Bonnie 5 year model risk: 1.2%. NCI Lifetime model risk: 4.6%. Prior Study Comparison: 07/04/2020 Bilateral Screening Mammogram, [facility]. 07/05/2021 Bilateral Screening Mammogram, [facility]. 07/06/2022 Bilateral MG 3D screening mammo w/cad, [facility]. Tissue Density: The breast tissue is almost entirely fat. Findings: Analyzed By CAD. There is no suspicious group of microcalcifications or new suspicious mass. Benign-appearing calcifications bilaterally. Overall Assessment: Benign, BI-RAD 2 Management: Screening Mammogram of both breasts in [address] [facility] will attempt to contact patient to return for supplemental views and ultrasound if indicated. Patient should continue monthly self-breast exams. A clinical breast exam by your physician is recommended on an annual basis. This exam should not preclude additional follow-up of suspicious palpable abnormalities. Note on Bonnie scores and lifetime risk: 1. A Bonnie score greater than 3% is considered moderate risk. If this is the case, consider specialist referral to assess eligibility for a risk reducing agent. 2. If overall lifetime risk for the development of breast cancer is 20% or higher, the patient may qualify for future screening with alternating mammogram and breast MRI. Electronically signed and approved by: Raffi Carvalho DO
== END | disposition home or self-care (01) ==
LOC: RADMAMWWP 12:45
PROVIDERS: ATTEND Family Medicine
DX: Z12.31 Encounter for screening mammogram for malignant neoplasm of breast (principal); M85.89 Other specified disorders of bone density and structure, multiple sites; Z78.0 Asymptomatic menopausal state
CPT/HCPCS: 77063; 77067; 77080

== ENCOUNTER → 2023-09-26 | Outpatient (CLI) | payer MEDICARE ==
[2023-09-26 14:44] LABS: BUN/Creat Ratio 16.89 Ratio (12.00-20.00); Blood Urea Nitrogen 15.2 mg/dL (9.0-27.0); Calcium 9.5 mg/dL (8.7-10.3); Carbon Dioxide 25.9 mmol/L (21.6-31.8); Chloride 93 mmol/L (96-109); Glucose 99 mg/dL (70-110); Potassium 4.6 mmol/L (3.5-5.5); Sodium 130 mmol/L (135-145)
== END | disposition home or self-care (01) ==
LOC: LABWHC1 11:07
PROVIDERS: ATTEND Internal Medicine
DX: I10 Essential (primary) hypertension (principal)
CPT/HCPCS: 36415; 80048

== ENCOUNTER → 2023-10-04 | Outpatient (CLI) | payer MEDICARE ==
[2023-10-04 19:06] LABS: Basophils % (A) 1.8 %; Eosinophils # (A) 0.21 X 10*3/uL (0.04-0.35); Eosinophils % (A) 3.7 %; HCT 40.3 % (37.2-46.3); Lymphocytes # (A) 2.56 X 10*3/uL (0.90-5.00); Lymphocytes % (A) 45.3 %; MCH 29.6 pg (27.0-32.0); MCHC 32.3 g/dL (32.0-37.0); MCV 91.8 FL (80.0-97.0); Mean Platelet Volume 9.3 FL (9.5-12.2); Monocytes # (A) 0.55 X 10*3/uL (0.20-1.00); Monocytes % (A) 9.7 %; NRBC Per 100 WBC 0 X 10*3/uL (0.00-0.01); Neutrophils # (A) 2.22 X 10*3/uL (1.80-7.70); Neutrophils % (A) 39.3 %; Platelet Count 306 X 10*3/uL (140-440); RBC 4.39 X 10*6/uL (4.10-5.20); RDW 12.6 % (11.5-14.5); WBC 5.65 X 10*3/uL (4.50-10.00)
[2023-10-04 20:28] LABS: ALT 25 U/L (8-44); AST 30 U/L (13-35); Alkaline Phosphatase 79 U/L (41-126); Blood Urea Nitrogen 11.9 mg/dL (9.0-27.0); Calcium 9.1 mg/dL (8.7-10.3); Carbon Dioxide 25.8 mmol/L (21.6-31.8); Chloride 101 mmol/L (96-109); Globulin 2.5 g/dL (1.6-3.3); Glucose 89 mg/dL (70-110); Potassium 4.6 mmol/L (3.5-5.5); Sodium 136 mmol/L (135-145); Total Bilirubin <0.2 mg/dL (0.3-1.2); Total Protein 6.5 g/dL (6.2-8.2)
== END | disposition home or self-care (01) ==
LOC: LABWHC1 11:09
PROVIDERS: ATTEND Family Medicine
DX: I10 Essential (primary) hypertension (principal); I42.8 Other cardiomyopathies
CPT/HCPCS: 36415; 80053; 84443; 85025

== ENCOUNTER → 2023-10-05 | Outpatient (CLI) | payer MEDICARE ==
[2023-10-05 13:24] LABS: Chol/HDL Ratio 3.67 Ratio; LDL Cholesterol,Calculated 107.1 mg/dL (0.0-131.0)
== END | disposition home or self-care (01) ==
LOC: LABWHC1 10:18
PROVIDERS: ATTEND Family Medicine
DX: I42.8 Other cardiomyopathies (principal); I10 Essential (primary) hypertension
CPT/HCPCS: 36415; 80061

== ENCOUNTER → 2024-08-11 | Outpatient (CLI) | payer MEDICARE ==
--- NOTE | 2024-08-12 07:52 | MM ---
Reason for Exam: Screening (asymptomatic). Last mammogram was performed 1 year(s) and 1 month(s) ago. Patient History: Menarche at age 14. First Full-Term at age 20. Postmenopausal. Patient used Hormonal Contraceptives for 4 years. Risk Values: Bonnie 5 year model risk: 1.2%. NCI Lifetime model risk: 4.4%. Prior Study Comparison: 07/05/2021 Bilateral Screening Mammogram, [facility]. 07/06/2022 Bilateral MG 3D screening mammo w/cad, [facility]. 07/08/2023 Bilateral MG 3D screening mammo w/cad, [facility]. Tissue Density: There are scattered areas of fibroglandular density. Findings: Analyzed By CAD. Stable 5 mm round mass anteriorly in the right breast. A few tiny benign-appearing round calcifications bilaterally are redemonstrated. Benign-appearing bilateral axillary lymph nodes are again seen. There is no suspicious new group of microcalcifications or new suspicious mass in either breast. Overall Assessment: Benign, BI-RAD 2 Management: Screening Mammogram of both breasts in 1 year. . Patient should continue monthly self-breast exams. A clinical breast exam by your physician is recommended on an annual basis. This exam should not preclude additional follow-up of suspicious palpable abnormalities. Note on Bonnie scores and lifetime risk: 1. A Bonnie score greater than 3% is considered moderate risk. If this is the case, consider specialist referral to assess eligibility for a risk reducing agent. 2. If overall lifetime risk for the development of breast cancer is 20% or higher, the patient may qualify for future screening with alternating mammogram and breast MRI. [facility], , 08/11/2024 3:18 PM. Electronically signed and approved by: Judd Gregory M.D.
== END | disposition home or self-care (01) ==
LOC: RADMAMWWP 14:45
PROVIDERS: ATTEND Family Medicine
DX: Z12.31 Encounter for screening mammogram for malignant neoplasm of breast (principal); R92.323 Mammographic fibroglandular density, bilateral breasts; R92.1 Mammographic calcification found on diagnostic imaging of breast; Z78.0 Asymptomatic menopausal state; Z92.0 Personal history of contraception
CPT/HCPCS: 77063; 77067